=== PATIENT | male | born 1950 | race Caucasian/White ===

== ENCOUNTER → 2019-09-29 12:32 | Outpatient (BNVA) | payer MEDICAID, SELFPAY | PROVIDERS: Family Provider Nurse Practitioner Family; PCP Nurse Practitioner Family; Visit Provider Anesthesiology | DX: M51.36 Other intervertebral disc degeneration, lumbar region (principal); M47.816 Spondylosis without myelopathy or radiculopathy, lumbar region; M54.16 Radiculopathy, lumbar region; M51.06 Intervertebral disc disorders with myelopathy, lumbar region; M99.83 Other biomechanical lesions of lumbar region; Z79.891 Long term (current) use of opiate analgesic | CPT/HCPCS: 99213; 99214 ==

== ENCOUNTER → 2019-11-18 13:09 | Outpatient (BNVA) | payer MEDICAID, SELFPAY | PROVIDERS: Family Provider Nurse Practitioner Family; PCP Family Medicine; Visit Provider Anesthesiology | DX: M51.06 Intervertebral disc disorders with myelopathy, lumbar region (principal); M99.83 Other biomechanical lesions of lumbar region; M47.816 Spondylosis without myelopathy or radiculopathy, lumbar region; M51.36 Other intervertebral disc degeneration, lumbar region; M54.16 Radiculopathy, lumbar region; S83.289A Other tear of lateral meniscus, current injury, unspecified knee, initial encounter; X58.XXXA Exposure to other specified factors, initial encounter; Z79.891 Long term (current) use of opiate analgesic | CPT/HCPCS: 99214 ==

== ENCOUNTER 2019-12-09 09:53 | Outpatient (CLI) | payer MEDICAID, SELFPAY ==
--- NOTE | 2019-12-09 10:03 | XR_ITS ---
WS: [id number] ABDOMEN 1 VIEW(S) HISTORY: ABDOMINAL PAIN COMPARISON: 09/26/2017 Mild diffuse constipation. There is increased air also throughout the small bowel which may be due to constipation. No wall thickening identified. No suspicious calcifications or masses. No bone abnormality. XR/XR KUB [id number] IMPRESSION: Diffuse constipation.
== END 2019-12-09 09:54 | disposition home or self-care (01) ==
PROVIDERS: Family Provider Nurse Practitioner Family; PCP Family Medicine; Visit Provider Internal Medicine
DX: K59.03 Drug induced constipation (principal); T40.2X5A Adverse effect of other opioids, initial encounter; X58.XXXA Exposure to other specified factors, initial encounter
CPT/HCPCS: 74018

== ENCOUNTER 2020-01-03 07:28 | Day surgery (SDC) | payer MEDICAID, SELFPAY ==
[2019-12-31 13:59] VITALS: BMI 25.0
[2020-01-03 07:41] VITALS: BP 169/91; PULSE 69; RESP 18; TEMP 36.7; O2SAT 95
[2020-01-03] MEDS: sodium chloride 0.9% 1,000 ML 30 ML IV (07:55)
--- NOTE | 2020-01-03 08:01 | ANES.PREANE2 ---
Pre-Anesthetic Assessment Pre-Anesthetic Assessment: Height/Weight: Height 1.78 m Weight 78.925 kg Temp Pulse Resp BP Pulse Ox 98.0 F 69 18 169/91 95 01/03/20 07:41 01/03/20 07:41 01/03/20 07:41 01/03/20 07:41 01/03/20 07:41 Preop Diagnosis: constipation Proposed Procedure: Operation Date: 01/03/20 09:05 Proposed Procedures p Colonoscopy 07025 K59.00(Not Applicable) - Bry Funes MD Familial anesthetic complications: None Was Beta Nathan taken within 24 hours: N/A Last intake: Intake Last Liquid Date 01/02/20 Last Liquid Time 21:00 Last Solid Date 01/01/20 Last Solid Time 09:00 Social: Social History: No alcohol and No tobacco Exam: Pre-Anes Outpt Exam: alert, oriented x 3, clear to auscultation bilaterally and regular rate & rhythm Airway: Cervical ROM: WNL MP: 2 Additional comments: top plate Pulmonary: Pulmonary: COPD Comments: soemtimes wears oxygen during the CV/HEM: CV/HEM: [place] Comments: 12 years ago - [place] : : None reported Hepatic: Hepatic: None reported GI: GI: GERD Metabolic: Metabolic: None reported Musc/skel: Musc/skel: Lower Back Pain Neuropsych: Neuropsych: Neuropathy and TIA Comments: L leg neuropathy Anesthetic Plan: ASA status: 3 Anesthesia: MAC Risk of > 500 ml blood loss (7ml/kg in children): No Meds/Allergies Current Medications: Current Medications Generic Name Dose Route Start Last Admin Trade Name Freq PRN Reason Stop Dose Admin Sodium Chloride 1,000 mls @ 30 ml s/hr 01/03/20 07:45 01/03/20 07:55 Sodium Chloride 0.9% IV 30 mls/hr .Q24H KRYSTEN Administration PFSH Anesthesia PFSH: Medical History (Updated 12/31/19 @ 13:57 by Sylwia Car) Acute bilateral low back pain Acute meniscal tear, lateral Bladder cancer Bladder trabeculation Chronic lumbar radiculopathy DDD (degenerative disc disease), lumbar Degenerative arthritis of lumbar spine Encounter for long-term opiate analgesic use Intervertebral disc disorders with myelopathy, 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
--- NOTE | 2020-01-03 08:46 | FL_ITS ---
WS: [id number] INDICATION: Evaluate for obstruction. Precolonoscopy. Fluoroscopy time 3.6 minutes TECHNIQUE: Gastrografin enema FINDINGS: Gastrografin enema. Normal filling of the sigmoid colon. Sigmoid diverticulosis. Somewhat t ortuous sigmoid colon without focal narrowing. Hepatic and splenic flexure normal in appearance. Norm al transit time to the cecum and ileocecal valve. Normal filling of the appendix. No evidence of high-grade stricture or mass. Additional colonic diver ticulosis more prominent involving the hepatic flexure and ascending colon. Normal postevacuation wes ges. FL/FL enema w gastrografin [id number] IMPRESSION: 1. Unremarkable Gastrografin enema. No evidence of high-grade obstruction or m ass. 2. Diverticulosis more prominent in the sigmoid colon and hepatic flexure. 3. Normal transit time with filling of the cecum. Normal ileocecal valve. 4. Normal appendix filling visualized.
--- NOTE | 2020-01-03 09:02 | SUR.PREOP ---
900ML SOAP SUDS ENEMA GIVEN. PT RETAINED FLUID FOR 5 MINUTES THEN VOIDED SANTOS COLORED FLUID WITH NO STOOL PARTICLES. PT TOLERATED PROCEDURE WELL. DOCTOR GREGG MADE AWARE OF RESULTS.
--- NOTE | 2020-01-03 10:25 | SUR.PREOP ---
PT RETURNED FROM PROCEDURE IN RADIOLOGY. RE-EVALUATED BY DOCTOR ESCOBEDO.
[2020-01-03] MEDS: diatrizoate meglumine 120 mL Sol PR (11:10)
--- NOTE | 2020-01-03 11:53 | W.PM.OPSUD ---
Surgery/Procedure H&P Update DATE OF PROCEDURE: January 03, 2020 DATE H&P PERFORMED: 12/30/19 PREOP DIAGNOSIS: constipation PLANNED PROCEDURE: Operation Date: 01/03/20 09:05 Proposed Procedures p Colonoscopy 32368 K59.00(Not Applicable) - Bry Funes MD
[2020-01-03 12:06] VITALS: BP 94/57; PULSE 64; RESP 18; TEMP 36.4; O2SAT 94
[2020-01-03 12:27] VITALS: BP 125/73; PULSE 71; RESP 18; O2SAT 98
== END 2020-01-03 13:01 | disposition home or self-care (01) ==
PROVIDERS: Family Provider Nurse Practitioner Family; Visit Provider Internal Medicine
PROC: 0DJD8ZZ Inspection of Lower Intestinal Tract, Via Natural or Artificial Opening Endoscopic (ICD-10-PCS; CPT 45378; principal; 2020-01-03 09:00)
DX: K59.00 Constipation, unspecified (principal); K57.30 Diverticulosis of large intestine without perforation or abscess without bleeding; Z82.49 Family history of ischemic heart disease and other diseases of the circulatory system; Z83.3 Family history of diabetes mellitus; Z87.891 Personal history of nicotine dependence; J44.9 Chronic obstructive pulmonary disease, unspecified; I25.2 Old myocardial infarction; K21.9 Gastro-esophageal reflux disease without esophagitis
CPT/HCPCS: 45378; 12345; 74270; J2001; J2704; J7030; Q9963

== ENCOUNTER → 2020-03-22 12:52 | Outpatient (BNVA) | payer MEDICAID, SELFPAY | PROVIDERS: Family Provider Nurse Practitioner Family; PCP Nurse Practitioner Family; Visit Provider Anesthesiology | DX: M54.42 Lumbago with sciatica, left side (principal); M51.06 Intervertebral disc disorders with myelopathy, lumbar region; M47.816 Spondylosis without myelopathy or radiculopathy, lumbar region; M51.36 Other intervertebral disc degeneration, lumbar region; M54.16 Radiculopathy, lumbar region; M99.83 Other biomechanical lesions of lumbar region; Z79.891 Long term (current) use of opiate analgesic | CPT/HCPCS: 99213; 99214 ==

== ENCOUNTER → 2020-05-24 12:51 | Outpatient (BNVA) | payer MEDICAID, SELFPAY | PROVIDERS: Family Provider Nurse Practitioner Family; PCP Nurse Practitioner Family; Visit Provider Anesthesiology | DX: M54.41 Lumbago with sciatica, right side (principal); M54.42 Lumbago with sciatica, left side; M47.816 Spondylosis without myelopathy or radiculopathy, lumbar region; M51.06 Intervertebral disc disorders with myelopathy, lumbar region; M51.36 Other intervertebral disc degeneration, lumbar region; M54.16 Radiculopathy, lumbar region; M99.83 Other biomechanical lesions of lumbar region; Z79.891 Long term (current) use of opiate analgesic | CPT/HCPCS: 99213; 99214 ==

== ENCOUNTER → 2020-07-26 12:31 | Outpatient (BNVA) | payer MEDICAID, SELFPAY | PROVIDERS: Family Provider Nurse Practitioner Family; PCP Nurse Practitioner Family; Visit Provider Anesthesiology | DX: M54.42 Lumbago with sciatica, left side (principal); M51.06 Intervertebral disc disorders with myelopathy, lumbar region; M51.36 Other intervertebral disc degeneration, lumbar region; M47.816 Spondylosis without myelopathy or radiculopathy, lumbar region; M54.16 Radiculopathy, lumbar region; M99.83 Other biomechanical lesions of lumbar region; Z79.891 Long term (current) use of opiate analgesic | CPT/HCPCS: 99212; 99214 ==

== ENCOUNTER → 2020-09-22 12:56 | Outpatient (BNVA) | payer MEDICAID, SELFPAY | PROVIDERS: Family Provider Nurse Practitioner Family; PCP Nurse Practitioner Family; Visit Provider Nurse Practitioner | DX: M51.06 Intervertebral disc disorders with myelopathy, lumbar region (principal); M54.16 Radiculopathy, lumbar region; K59.03 Drug induced constipation; T40.2X5A Adverse effect of other opioids, initial encounter; X58.XXXA Exposure to other specified factors, initial encounter; Z79.891 Long term (current) use of opiate analgesic | CPT/HCPCS: 99213 ==

== ENCOUNTER → 2020-11-22 12:23 | Outpatient (BNVA) | payer MEDICAID, SELFPAY | PROVIDERS: Family Provider Nurse Practitioner Family; PCP Nurse Practitioner Family; Visit Provider Nurse Practitioner | DX: M54.16 Radiculopathy, lumbar region (principal); M51.36 Other intervertebral disc degeneration, lumbar region; M47.816 Spondylosis without myelopathy or radiculopathy, lumbar region; M51.06 Intervertebral disc disorders with myelopathy, lumbar region; M99.83 Other biomechanical lesions of lumbar region; T40.2X5A Adverse effect of other opioids, initial encounter; X58.XXXA Exposure to other specified factors, initial encounter; Z79.891 Long term (current) use of opiate analgesic | CPT/HCPCS: 99212 ==

== ENCOUNTER 2021-01-01 10:19 | Emergency (ER) | payer MEDICAID, SELFPAY ==
[2021-01-01 10:42] VITALS: BP 144/80; PULSE 67; RESP 16; TEMP 36.6; O2SAT 96; BMI 25.0
--- NOTE | 2021-01-01 10:51 | XRR_ITS ---
PROCEDURE INFORMATION: Exam: XR Abdomen Exam date and time: 01/01/2021 10:52 AM Age: 70 years old Clinical indication: Constipation; Abdominal pain; Generalized; Additional info: Abd pain and constipation for 1 year, increasing over time TECHNIQUE: Imaging protocol: XR of the abdomen. Views: Frontal supine view of the abdomen. 1 View. COMPARISON: CR XR KUB [id number] 12/09/2019 10:09 AM FINDINGS: Gastrointestinal tract: There is prominence of the amount of stool in the colon consistent with history of constipation. There is gaseous distention of multiple small bowel loops which is similar to previous examinations. Bones/joints: Unremarkable. XR/XR KUB portable [id number] IMPRESSION: 1. Prominence of the amount of stool in the colon consistent with constipation. 2. Stable gaseous distention of multiple bowel loops unchanged from multiple old examinations.
--- NOTE | 2021-01-01 11:28 | W.ED.ABDPA2 ---
HPI - Abdominal Pain General: Chief Complaint: Abdominal Pain Stated Complaint: NO BOWEL MOVEMENTS Time Seen by Provider: 01/01/21 10:48 History of Present Illness: HPI narrative: 70-year-old male presents emergency room with complaint of chronic constipation has not had a bowel movement last 3 to 4 days. He states he was seen at [place] evidently had a colonoscopy little over a year ago. He denies any hematochezia melena hematemesis coffee-ground emesis no dysuria urgency or frequency no vomiting. MD elicited complaint: abdominal pain Pertinent past history: constipation Onset (ago): year(s) Pain Consistency: intermittent Location: Diffuse Severity: mild Quality: cramping Radiation: none Migration to: no migration Relieving factors: bowel movement Associated Symptoms: Reports bloating, GI cramping and poor appetite; Denies belching, change in bowel habits, change in stool character, chills, coffee ground emesis, constipation, diarrhea, dyspepsia, dysuria, excessive flatus, fever(s), heartburn, hematochezia, hematuria, hematemesis, fecal incontinence, loose stools, melena, nausea, syncope and vomiting Review of Systems Const: Denies: fever(s) or chills ENMT: Denies: throat pain, ear or mastoid pain, nasal discharge or nasal congestion Card: Denies: syncope Resp: Denies: dyspnea, productive cough or non-productive cough GI: Reports: bloating and GI cramping; Denies: nausea, vomiting, hematemesis, coffee ground emesis, heartburn, diarrhea, constipation, belching, excessive flatus, fecal incontinence, change in bowel habits, hematochezia or melena : Denies: dysuria or hematuria Skin/Breast: Denies: rash or pruritus PFSH ED PFSH: Medical History Acute bilateral low back pain Acute meniscal tear, lateral Bladder cancer Bladder trabeculation Chronic lumbar radiculopathy DDD (degenerative disc disease), lumbar Degenerative arthritis of lumbar spine Encounter for long-term opiate analgesic use Intervertebral disc disorders with myelopathy, lumbar region Neural foraminal stenosis of lumbar spine Surgical History History of neoplasm of bladder Family History Mother Diabetes Father CAD (coronary artery disease) COPD (chronic obstructive pulmonary disease) Social History Smoking and tobacco status: former smoker Second hand smoke exposure: No Alcohol intake: never History of recent travel: No Current gender identity: Male Physical Exam Const: COMMON NORMALS: no acute distress GENERAL APPEARANCE: cooperative and comfortable ORIENTATION/CONSCIOUSNESS: Yes awake, Yes oriented to person, Yes oriented to place and Yes oriented to time HENMT: COMMON NORMALS: normocephalic, atraumatic and hearing grossly normal bilaterally HEAD & SCALP: normocephalic and atraumatic Neck/C-Spine: COMMON NORMALS: full ROM, no lymphadenopathy, supple and no JVD Resp: COMMON NORMALS: normal respiratory effort, No retractions, No use of accessory muscles and clear to auscultation bilaterally AUSCULTATION: clear to auscultation bilaterally Cardio: COMMON NORMALS: no JVD, regular rate, regular rhythm and No murmurs present (Cardio) RATE: regular rate RHYTHM: regular rhythm GI: COMMON NORMALS: Soft to palpation and No hepatosplenomegaly present AUSCULTATION: Yes normoactive bowel sounds PALPATION: Yes Soft to palpation, No Tenderness to palpation present (GI), No Guarding due to palpation present (GI) and Yes No hepatosplenomegaly present Extremity: COMMON NORMALS: normal to inspection, capillary refill normal, no clubbing, cyanosis or edema, no calf tenderness and no pedal edema Neuro: SENSORIUM/ORIENTATION: Yes oriented to person, Yes oriented to place and Yes oriented to time Skin: COMMON NORMALS: no rashes or lesions noted GENERAL SKIN EXAM: no rashes or lesions noted Course Vital Signs: Vital signs: Vital Signs Temperature 97.8 F 01/01/21 10:42 Pulse Rate 67 01/01/21 14:09 Respiratory Rate 18 01/01/21 14:09 Blood Pressure 146/77 01/01/21 14:09 Pulse Oximetry 95 01/01/21 14:09 MDM - Abdominal Pain MDM Narrative: Medical decision making narrative: Reviewed findings with the patient recommend that he follow-up with Dr. Funes or one of the surgeons for further evaluation recommend mag citrate for relief immediate constipation and Krupa-Colace for ongoing can use MiraLAX as well. Return if has problems Lab Data: Labs: Lab Results 01/01/21 01/01/21 01/01/21 Range/Units 11:00 12:40 12:40 WBC 6.0 (4.0-10.0) 10^3/ uL RBC 5.06 (4.1-5.3) 10^6/u L Hgb 16.7 H (11.7-16.6) g/dL Hct 54.0 H (42.0-52.0) % MCV 106.7 H (80-94) fL MCH 33.0 (28.0-34.0) pg MCHC 30.9 (30.0-36.0) g/dL RDW 13.1 (12.1-15.1) % Plt Count 131 (130-400) 10^3/c mm MPV 10.8 H (7.4-10.4) fL Neut % (Auto) 64.5 % Lymph % (Auto) 24.8 % Churchill % (Auto) 7.5 % Eos % (Auto) 2.2 % Baso % (Auto) 0.8 % Neut # (Auto) 3.88 (1.8-7.7) 10^3/u L Lymph # (Auto) 1.5 (0.8-4.8) 10^3/u L Churchill # (Auto) 0.5 (0.2-0.9) 10^3/u L Eos # (Auto) 0.1 (0.0-0.8) 10^3/u L Baso # (Auto) 0.1 (0.0-0.1) 10^3/u L Nucleated RBC % (a uto) 0 % Nucleated RBCs # 0.0 /100WBC Sodium 139 (136-145) mmol/L Potassium 3.9 (3.5-5.1) mmol/L Chloride 107 (98-107) mmol/L Carbon Dioxide 21 L (22-29) mmol/L Anion Gap 14.9 (5-19) BUN 9 (8-23) mg/dL Creatinine 0.7 (0.7-1.2) mg/dL GFR Calculation 111.5 (90-130) mL/min Glucose 78 (65-115) mg/dL Calculated Osmolal ity 286 (285-295) mOsm/k g Calcium 8.9 (8.5-10.5) mg/dL Total Bilirubin 0.5 (0.15-1.2) mg/dL AST 15 (0-40) U/L ALT 8 (0-41) U/L Alkaline Phosphata se 58 (40-130) IU/L Total Protein 6.8 (6.6-8.7) g/dL Albumin 4.0 (3.5-5.2) g/dL Globulin 2.8 (1.3-4.6) g/dL Urine Color Yellow (Yellow) Urine Appearance Clear (CLEAR) Urine pH 7 (5-7) Ur Specific Gravit y 1.010 (1.005-1.030) Urine Protein Neg (Negative) Urine Glucose (UA) Norm (Normal) Urine Ketones Negative (Negative) Urine Blood Neg (Negative) Urine Nitrate Negative (Negative) Urine Bilirubin Neg (Negative) Urine Urobilinogen Norm (Negative) mg/dL Ur Leukocyte Melida ase Negative (Negative) Discharge Plan Discharge Patient Disposition: Home Clinical Impression: Constipation Condition: Stable Prescriptions: New Citrate of Magnesia Solution 150 ml PO BID PRN (Reason: constipation) Qty: 296 RF: 0 No Action albuterol sulfate 2.5 mg /3 mL (0.083 %) solution for nebulization 2.5 mg INHALATION Q6H PRN (Reason: Shortness Of Breath) RF: 0 amlodipine 10 mg tablet 10 mg PO DAILY@0800 RF: 0 Benefiber Sugar Free (dextrin) 3 gram/3.8 gram powder 0.5 packet PO DAILY@0800 RF: 0 garlic 1,000 mg capsule 1,000 mg PO DAILY@0800 RF: 0 Discharge Orders: Discharge ED (Routine); Ordered 01/01/21 Ordered By: Alejandro Pruitt Referrals: Ridge Klein [Primary Care Provider] - Discharge Diet: Clear Liquid Discharge Activity: Increase activity as tolerated Patient Instructions: Opioid Safety Activity Restrictions/Additional Instructions: Case management will call to make arrangements for referral for colonoscopy. Coding Level of Care Code ED Car Clerk Pullman for Lee Ann Khan
[2021-01-01 11:43] LABS: Add Urine Microscopic? NO; Charge for UA Resulting for Rev
[2021-01-01 12:02] LABS: Bilirubin Urine Neg (Negative); Blood Urine Neg (Negative); Glucose Urine UA Norm (Normal); Ketones Urine Negative (Negative); Leukocyte Esterase Urine Negative (Negative); Nitrate Urine Negative (Negative); Protein Urine Neg (Negative); Urine Appearance Clear (CLEAR); Urine Color Yellow (Yellow); Urobilinogen Urine Norm (Negative); pH Urine 7 (5-7)
[2021-01-01 12:55] LABS: Basophils # 0.1 10^3/uL (0.0-0.1); Basophils % 0.8 %; Eosinophils # 0.1 10^3/uL (0.0-0.8); Eosinophils % 2.2 %; Hemoglobin 16.7 g/dL (11.7-16.6); Lymphocytes # 1.5 10^3/uL (0.8-4.8); Lymphocytes % 24.8 %; Mean Corpuscular HGB Conc 30.9 g/dL (30.0-36.0); Mean Corpuscular Volume 106.7 fL (80-94); Mean Platelet Volume 10.8 fL (7.4-10.4); Monocytes # 0.5 10^3/uL (0.2-0.9); Monocytes % 7.5 %; Neutrophils # 3.88 10^3/uL (1.8-7.7); Neutrophils % 64.5 %; Nucleated Red Blood Cells % 0 %; Platelet Count 131 10^3/cmm (130-400); Red Blood Count 5.06 10^6/uL (4.1-5.3); Red Cell Distribution Width 13.1 % (12.1-15.1)
[2021-01-01 13:26] LABS: Alanine Aminotransferase 8 U/L (0-41); Alkaline Phosphatase 58 IU/L (40-130); Aspartate Amino Transferase 15 U/L (0-40); Blood Urea Nitrogen 9 mg/dL (8-23); Calcium 8.9 mg/dL (8.5-10.5); Carbon Dioxide 21 mmol/L (22-29); Chloride 107 mmol/L (98-107); Globulin 2.8 g/dL (1.3-4.6); Glomerular Filtration Rate 111.5 mL/min (90-130); Glucose 78 mg/dL (65-115); Osmolality Calculated 286 mOsm/kg (285-295); Sodium 139 mmol/L (136-145); Total Bilirubin 0.5 mg/dL (0.15-1.2); Total Protein 6.8 g/dL (6.6-8.7)
[2021-01-01 13:33] LABS: Anion Gap 14.9 (5-19); Potassium 3.9 mmol/L (3.5-5.1)
[2021-01-01 14:08] VITALS: BP 141/76; PULSE 66; RESP 18; O2SAT 95
[2021-01-01 14:09] VITALS: BP 146/77; PULSE 67; RESP 18; O2SAT 95
--- NOTE | 2021-01-04 14:09 | DCPLANNER ---
manager maritime had message to schedule a follow up appointment for patient with Dr. Funes. manager maritime called the office of Dr. Funes, spoke with Beverley, gave clinic patients information. A follow up appointment was scheduled for Sunday, January 10, 2021 at 2:[address] Funes. manager maritime called patient with appointment information.
--- NOTE | 2021-04-04 07:14 | DCPLANNER ---
Patient had a follow up appointment scheduled for 01.10.[address] Funes - patient did attend appointment.
== END 2021-01-01 14:11 | disposition home or self-care (01) ==
PROVIDERS: Emergency Provider Family Medicine; PCP Nurse Practitioner Family
DX: K59.00 Constipation, unspecified (principal); Z85.51 Personal history of malignant neoplasm of bladder; Z87.891 Personal history of nicotine dependence
CPT/HCPCS: 36415; 74018; 80053; 81003; 85025; 99282

== ENCOUNTER 2021-09-09 11:03 | Observation (INO) | payer MEDICAID, SELFPAY ==
[2021-09-09] VITALS (11 sets, daily range): BP systolic 129–158; BP diastolic 68–94; PULSE 54–68; RESP 14–22; TEMP 36.6–36.7; O2SAT 92–97; BMI 22.6
--- NOTE | 2021-09-09 11:21 | ECG_ITS ---
[facility] Test Date: 2021-09-09 Pat Name: Bo Paez Department: Room: Gender: Male Employee Health Nurse: : 1950 Requested By: Kriss Gallagher Order Number: [id number] Chang MD: Teresa Galeas M.D. Measurements Intervals [place] Rate: 55 P: 46 AL: 225 QRS: 3 QRSD: 98 T: 32 QT: 433 QTc: 415 Interpretive Statements SINUS BRADYCARDIA WITH FIRST DEGREE AV BLOCK LOW QRS VOLTAGE IN EXTREMITY LEADS [QRS DEFLECTION < 0.5 mV IN LIMB LEADS] Compared to ECG 09/21/2015 10:25:12 First degree AV block now present Low QRS voltage now present Sinus rhythm no longer present T-wave abnormality no longer present Electronically Signed On 09-10-2021 15:34:21 FOREST EXAMINER by Teresa Galeas M.D. [id number]
--- NOTE | 2021-09-09 12:15 | W.ED.GENADLT ---
HPI - General Adult General: Chief complaint: Arrhythmia/Palpitations Stated complaint: irregular heartbeat Time Seen by Provider: 09/09/21 11:28 History of Present Illness: HPI narrative: HPI: [70]yo patient w/ hx of HTN prior hx of CAD, COPD presenting to the ED for concern for s/p acute episode of light-headedness lasting for 3 hrs this morning while at home. Patient reports diaphoresis and dyspnea with the episode. On arrival, the patient denies any trauma/fall, chest pain, SOB, palpitations, focal neurological weakness in the arms or legs. Patient could not recall exactly what happened, but denied any post-ictal confusion, bowel or bladder incontinence after the incident. Denies any chest pain, shortness, palpitation, abdominal pain or back pain prior to the episode of syncope. No recent exertional chest pain or shortness of breath. Denies vertigo or disequilibrium. The episode of syncope was not preceded by any prodromes including nausea, pallor, or diaphoresis. No symptoms of diarrhea, hematuria, dysuria, melena or hematochezia. No prior documented hx of anemia requiring blood transfusions, VTE, or aortic aneurysm. Onset: 1 day ago Duration: x 1 episode Location: home Severity: moderate Review of Systems Narrative: Constitutional: No fever, no chills. HEENT: No vision changes CV: No chest pain, +palpitations PULM: No productive cough, dyspnea, +diaphoresis GI: No abdominal pain, no N/V/D. : No Dysuria MSKEL: No muscle pain SKIN: No new rashes, no lesions. NEURO: No headache, no focal weakness. +light-headedness HEME: No visible bruises PSYCH: Normal mood PFSH ED PFSH: Medical History Acute bilateral low back pain Acute meniscal tear, lateral Bladder cancer Bladder trabeculation Chronic lumbar radiculopathy COPD (chronic obstructive pulmonary disease) DDD (degenerative disc disease), lumbar Degenerative arthritis of lumbar spine Encounter for long-term opiate analgesic use Hypertension Intervertebral disc disorders with myelopathy, lumbar region Neural foraminal stenosis of lumbar spine Surgical History History of neoplasm of bladder Family History Mother Diabetes Father CAD (coronary artery disease) COPD (chronic obstructive pulmonary disease) Social History Smoking and tobacco status: current every day smoker cigarettes Second hand smoke exposure: No Alcohol intake: never Lives independently: Yes Household members: none Marital status: Single Marital status details: Has a significant other History of recent travel: No Current gender identity: Male Physical Exam Narrative: EXAM NARRATIVE: Head: Atraumatic Eyes: PERRL, conjunctiva without injection, eyes tracking ENT: Mucous membrane moist NECK: Supple without lymphadenopathy, no nuchal rigidity LUNGS: LCTAB CV: RRR ABDOMEN: Soft, nontender in all quadrants, no guarding or rebound tenderness, no CVA or flank tenderness bilaterally EXTREMITY: Normal ROM SKIN: No rash or erythema NEURO: Mental status: A/Ox3 CN II-XII tested and intact. Sensation intact to sharp/dull differentiation in all extremities. Motor: Normal tone and bulk. No abnormal movements appreciated. No pronator drift. Strength tested and 5/5 in bilateral wrist flexion/extension, elbow flexion/extension, shoulder abduction, straight leg raise, knee flexion/extension, ankle dorsiflexion/plantarflexion. Patient ambulates with a steady gait. Coordination: Finger to nose and heel to alfonso testing intact bilaterally. PSYCH: Cooperative mood and affect Course Vital Signs: Vital signs: Vital Signs Temperature 97.4 F L 09/10/21 07:18 Pulse Rate 52 L 09/10/21 07:18 Respiratory Rate 19 H 09/10/21 07:18 Blood Pressure 162/99 09/10/21 12:39 Pulse Oximetry 95 09/10/21 07:18 MDM - General Adult MDM Narrative: Medical decision making narrative: [70]yo patient w/ hx of CAD, HTN presenting to the ED with []near syncope. -chest pain, +SOB, +palpitations /+diaphoresis. Currently symptom free. HDS. Neurologically intact. Given history, exam and workup, presentation not consistent with seizures given short time course, no postictal state, no seizure activity. Low suspicion for acute neurologic catastrophes to include ICH given lack of trauma, risk factors for bleeding diathesis. Low suspicion for vascular catastrophes to include PE, thoracic aortic dissection, AAA rupture. Presentation not consistent with acute life threatening arrhythmia, structural heart disease, electrical conduction abnormalities, or ACS. Workup: CBC, BMP, Troponin, BNP, ECG, CXR for aspiration, orthostatic vitals Intervention: IVF, PO challenge, and serial reassessment EKG: No e/o STEMI. No evidence of Brugada?s sign, delta wave, epsilon wave, significantly prolonged QTc, or malignant arrhythmia. [1:12pm] On reassessment, patient continues to HDS. No acute complaints currently. No syncopal episode in the ER. No arrhythmia noted on the cardiac cath lab technologist. []Patient has been able to ambulate in the ED without issues. No suspicion of neurogenic syncope at this time. However, given age, cardiovascular risk factors and multiple co-rmbities, the patient will need inpatient workup for cardiac syncope. Patient agrees with the plan for inpatient admission at this time. Disposition: Admit to medicine, telemetry bed for cardiac monitoring and cardiology review. Lab Data: Labs: Lab Results 09/09/21 09/09/21 09/09/21 12:06 12:06 12:06 WBC 7.1 10^3/uL 10^3/ uL (4.0-10.0) RBC 4.80 10^6/uL 10^6 /uL (4.1-5.3) Hgb 15.8 g/dL g/dL (11.7-16.6) Hct 46.5 % % (42.0-52.0) MCV 96.9 fl H fl (80-94) MCH 32.9 pg pg (28.0-34.0) MCHC 34.0 g/dL g/dL (30.0-36.0) RDW 12.9 % % (12.1-15.1) Plt Count 122 10^3/cmm L 10 ^3/cmm (130-400) MPV 11.1 fL H fL (7.4-10.4) Neut % (Auto) 58.1 % % Lymph % (Auto) 26.7 % % Hale % (Auto) 9.6 % % Eos % (Auto) 4.5 % % Baso % (Auto) 1.0 % % Neut # (Auto) 4.12 10^3/uL 10^3 /uL (1.8-7.7) Lymph # (Auto) 1.9 10^3/uL 10^3/ uL (0.8-4.8) Hale # (Auto) 0.7 10^3/uL 10^3/ uL (0.2-0.9) Eos # (Auto) 0.3 10^3/uL 10^3/ uL (0.0-0.8) Baso # (Auto) 0.1 10^3/uL 10^3/ uL (0.0-0.1) Nucleated RBC % (a uto) 0 % % Nucleated RBCs # 0.0 /100WBC /100W BC Sodium 138 mmol/L mmol/L (136-145) Potassium 4.2 mmol/L mmol/L (3.5-5.1) Chloride 105 mmol/L mmol/L (98-107) Carbon Dioxide 22 mmol/L mmol/L (22-29) Anion Gap 15.2 (5-19) BUN 17 mg/dL mg/dL (8-23) Creatinine 1.0 mg/dL mg/dL (0.7-1.2) GFR Calculation 73.9 mL/min L mL/ min (90-130) Glucose 89 mg/dL mg/dL (65-115) Calculated Osmolal ity 287 mOsm/kg mOsm/ kg (285-295) Calcium 8.1 mg/dL L mg/dL (8.5-10.5) Magnesium 2.1 mg/dL mg/dL (1.7-2.3) Troponin T Baselin e 11 ng/L ng/L (0-15) Discharge Plan Discharge Patient Disposition: Admitted As Inpatient Admit Provider: Anshul Last Clinical Impression: Palpitations, Light headedness Condition: Stable Discharge Diet: Cardiac Discharge Activity: Resume usual activity Coding Level of Care Code ED Typo Machine Operator for Lee Ann Khan
[2021-09-09 12:17] LABS: Basophils # 0.1 10^3/uL (0.0-0.1); Eosinophils # 0.3 10^3/uL (0.0-0.8); Eosinophils % 4.5 %; Hematocrit 46.5 % (42.0-52.0); Hemoglobin 15.8 g/dL (11.7-16.6); Lymphocytes # 1.9 10^3/uL (0.8-4.8); Lymphocytes % 26.7 %; Mean Corpuscular Hemoglobin 32.9 pg (28.0-34.0); Mean Corpuscular Volume 96.9 fl (80-94); Mean Platelet Volume 11.1 fL (7.4-10.4); Monocytes # 0.7 10^3/uL (0.2-0.9); Monocytes % 9.6 %; Neutrophils # 4.12 10^3/uL (1.8-7.7); Neutrophils % 58.1 %; Nucleated Red Blood Cells % 0 %; Platelet Count 122 10^3/cmm (130-400); Red Cell Distribution Width 12.9 % (12.1-15.1); White Blood Count 7.1 10^3/uL (4.0-10.0)
[2021-09-09 12:34] LABS: Troponin(5th) Baseline 11 ng/L (0-15)
[2021-09-09 12:41] LABS: Anion Gap 15.2 (5-19); Blood Urea Nitrogen 17 mg/dL (8-23); Calcium 8.1 mg/dL (8.5-10.5); Carbon Dioxide 22 mmol/L (22-29); Chloride 105 mmol/L (98-107); Glomerular Filtration Rate 73.9 mL/min (90-130); Glucose 89 mg/dL (65-115); Magnesium 2.1 mg/dL (1.7-2.3); Osmolality Calculated 287 mOsm/kg (285-295); Potassium 4.2 mmol/L (3.5-5.1); Sodium 138 mmol/L (136-145)
--- NOTE | 2021-09-09 13:07 | XRR_ITS ---
PROCEDURE INFORMATION: Exam: XR Chest Exam date and time: 09/09/2021 1:07 PM Age: 70 years old Clinical indication: Dyspnea TECHNIQUE: Imaging protocol: XR of the chest. Views: 1 view. COMPARISON: CR XR KUB portable [id number] 01/01/2021 11:14 AM FINDINGS: Lungs: Unremarkable. No consolidation. Lungs are hyperexpanded. Pleural spaces: Unremarkable. No pleural effusion. No pneumothorax. Heart/Mediastinum: Unremarkable. No cardiomegaly. Bones/joints: ORIF partially visualized left humerus. XR/XR chest 1V portable [id number] IMPRESSION: Lungs are hyperexpanded. This can be seen with COPD. Please correlate clinically.
--- NOTE | 2021-09-09 13:21 | ECG_ITS ---
[facility] Test Date: 2021-09-09 Pat Name: Bo Paez Department: Room: Gender: Male Manager Asset: : 1950 Requested By: Kriss Gallagher Order Number: [id number] Chang MD: Teresa Galeas M.D. Measurements Intervals [place] Rate: 59 P: 83 CA: 216 QRS: -2 QRSD: 105 T: 42 QT: 413 QTc: 410 Interpretive Statements SINUS BRADYCARDIA WITH FIRST DEGREE AV BLOCK LOW QRS VOLTAGE IN EXTREMITY LEADS [QRS DEFLECTION < 0.5 mV IN LIMB LEADS] Compared to ECG 09/09/2021 12:27:02 No significant changes Electronically Signed On 09-10-2021 16:57:58 PARTY PLAN SALES DIRECTOR by Teresa Galeas M.D. [id number]
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
--- NOTE | 2021-09-09 16:45 | PC.NURSE ---
Shift Note Frequent safety and comfort rounds continue. Orders and/or nursing care completed as indicated. Patient monitored for response to intervention and treatment(s). Education provided includes orthostatic telemetry monitoring, aspirin and lovenox. Patient and/or indirect sales representative verbalizes understanding. Will continue to monitor. oriented pt to staff. call light provided.
--- NOTE | 2021-09-09 17:21 | ECG_ITS ---
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 Measurements Intervals [place] Rate: 64 P: 5 VT: 170 QRS: 16 QRSD: 102 T: 57 QT: 395 QTc: 408 Interpretive Statements SINUS RHYTHM LOW QRS VOLTAGE IN EXTREMITY LEADS [QRS DEFLECTION < 0.5 mV IN LIMB LEADS] Compared to ECG 09/09/2021 13:43:31 Sinus bradycardia no longer present First degree AV block no longer present Electronically Signed On 09-10-2021 16:57:19 SOLE LEVELING MACHINE OPERATOR by Teresa Galeas M.D. [email or web address]
[2021-09-09] MEDS: aspirin 81 mg EC Tablet PO (18:41)
[2021-09-09] MEDS: enoxaparin 40 mg/0.4 mL Syringe SUBCUT (18:42)
[2021-09-09 19:00] LABS: Troponin 5 6HR 12.21 ng/L (0-15); Troponin 5 6HR Delta 1.21 ng/L (0-12)
--- NOTE | 2021-09-09 23:52 | PC.NURSE ---
Patient request to take off jeans at beginning of shift. He does not want to do this at this time. Explained that it will be necessary for scheduled testing in the am. Will try once more to get patient to remove jeans at later vital signs.
[2021-09-10 03:37] VITALS: BP 140/97; PULSE 62; RESP 17; TEMP 36.8; O2SAT 94
[2021-09-10 04:11] VITALS: PULSE 50
[2021-09-10 04:52] LABS: Basophils # 0.1 10^3/uL (0.0-0.1); Eosinophils # 0.3 10^3/uL (0.0-0.8); Eosinophils % 3.8 %; Hematocrit 46.2 % (42.0-52.0); Hemoglobin 15.9 g/dL (11.7-16.6); Lymphocytes # 2.7 10^3/uL (0.8-4.8); Lymphocytes % 33.3 %; Mean Corpuscular HGB Conc 34.4 g/dL (30.0-36.0); Mean Corpuscular Hemoglobin 33.5 pg (28.0-34.0); Mean Corpuscular Volume 97.3 fl (80-94); Mean Platelet Volume 11.2 fL (7.4-10.4); Monocytes # 0.9 10^3/uL (0.2-0.9); Monocytes % 10.9 %; Neutrophils # 4.05 10^3/uL (1.8-7.7); Neutrophils % 50.9 %; Nucleated Red Blood Cells % 0 %; Platelet Count 130 10^3/cmm (130-400); Red Blood Count 4.75 10^6/uL (4.1-5.3)
[2021-09-10 05:23] LABS: Alanine Aminotransferase 6 U/L (0-41); Albumin Level 3.6 g/dL (3.5-5.2); Alkaline Phosphatase 53 IU/L (40-130); Aspartate Amino Transferase 12 U/L (0-40); Blood Urea Nitrogen 15 mg/dL (8-23); Calcium 8.3 mg/dL (8.5-10.5); Carbon Dioxide 29 mmol/L (22-29); Chloride 106 mmol/L (98-107); Globulin 2.4 g/dL (1.3-4.6); Glomerular Filtration Rate 83.4 mL/min (90-130); Glucose 83 mg/dL (65-115); Osmolality Calculated 296 mOsm/kg (285-295); Sodium 143 mmol/L (136-145); Thyroid Stimulating Hormone 2.62 uIU/mL (0.27-4.20); Total Bilirubin 0.4 mg/dL (0.15-1.2)
--- NOTE | 2021-09-10 06:00 | USCV_ITS ---
Bo Paez Age: 70 Gender: M : 1950 Exam Date: 09/10/2021 06:24 Ordering Phys: Anshul Last MD Technologist: Junie Ortega [place] [facility] [place]: LLE SWELLING HISTORY: Lower extremity swelling. PROCEDURES: Venous duplex imaging was performed in only the left lower extremity. The following venous structures were evaluated: common femoral vein, profunda vein, proximal portion of the greater saphenous vein, superficial femoral vein, and the popliteal vein. In addition, the posterior tibial and peroneal trunk were evaluated. Serial compression, augmentation maneuvers, and spectral Doppler flow evaluation were performed. FINDINGS: No evidence of DVT seen in any vessel visualized at this time. CONCLUSIONS No evidence of left lower extremity DVT. Mateus Pérez MD (Electronically Signed) Final Date: 10 September 2021 10:50 S
--- NOTE | 2021-09-10 06:00 | USCV_ITS ---
Bo Paez Age: 70 Gender: M : 1950 Exam Date: 09/10/2021 06:32 Ordering Phys: Anshul Last MD Technologist: Junie Ortega [place] [facility] [place]ication: BRADYCARDIA, CAD BP: 140 / 97 HR: 51 Rhythm: Other Technical Quality: Technically difficult study MEASUREMENTS (Male / Female) Normal Values 2D ECHO LV Diastolic Diameter PLAX 4.3 cm 4.2 - 5.9 / 3.9 - 5.3 cm LV Systolic Diameter PLAX 3.2 cm IVS Diastolic Thickness 1.4 cm 0.6 - 1.0 / 0.6 - 0.9 cm IVS Systolic Thickness 1.9 cm LVPW Diastolic Thickness 1.6 cm 0.6 - 1.0 / 0.6 - 0.9 cm LVPW Systolic Thickness 2.2 cm LVOT Diameter 2.0 cm LV Ejection Fraction 2D Teich 52.4 % LV Ejection Fraction MOD 2C 49.0 % LV Ejection Fraction 2C AL 47.9 % LA Diameter 3.4 cm LA Width 3.1 cm LA Height 4.0 cm RA Width 2.7 cm RA Height 3.6 cm Aorta at Sinotubular Diameter 2.8 cm M-MODE Aortic Annulus Diameter 2.7 cm LA Ao Ratio MM 1.2 MV E Point Septal Separation 0.7 cm DOPPLER AV Peak Velocity 89.0 cm/s LVOT Peak Velocity 66.0 cm/s AV Area Cont Eq vti 2.2 cm squared AV Area Cont Eq pk 2.4 cm squared MV Peak Velocity 69.0 cm/s MV Area PHT 2.7 cm squared Mitral E to A Ratio 1.0 MV E' Velocity 34.5 cm/s Mitral E to MV E' Ratio 6.3 Mitral E to LV E' Lateral Ratio 6.8 Mitral E to LV E' Septal Ratio 6.0 TV Peak E Velocity 54.0 cm/s PV Peak Velocity 71.0 cm/s RV Acceleration Time 0.1 s RV Ejection Time 0.3 s RV AcT/ET 0.3 FINDINGS Left Ventricle Normal left ventricular size and systolic function, EF 48 %. Mild left ventricular hypertrophy. Diffuse hypokinesia of the inferolateral wall segment Right Ventricle The right ventricle is normal in size and function. Right Atrium The right atrium is normal in size. Left Atrium The left atrium is normal in size. Mitral Valve Thickened mitral valve. Mild mitral annular calcification. Aortic Valve Thickened aortic valve. Tricuspid Valve No gross abnormalities noted Pulmonic Valve Pulmonic valve not well visualized. Pericardium Normal pericardium without effusion. Aorta Normal ascending aorta dimension. CONCLUSIONS Normal left ventricular size with diminished LVEF 48 %. Mild left ventricular hypertrophy. Diffuse hypokinesis of the inferolateral wall segment Thickened mitral valve. Mild mitral annular calcification. Thickened aortic valve. There is no pericardial effusion. There are no intracardiac masses. No previous study is available for comparison. Dr Douglas Junior MD FACC (Electronically Signed) Final Date: 11 September 2021 00:02 S
[2021-09-10 07:18] VITALS: BP 162/99; PULSE 52; RESP 19; TEMP 36.3; O2SAT 95
--- NOTE | 2021-09-10 07:22 | PC.NURSE ---
Patient refusing to take off his jeans thoughout previous shift and at beginning of my shift. ASPHALT SPREADER OPERATOR able to get patient to remove his jeans at end of shift as he had a venous doppler ordered for possible dvt as he has swelling to lag. Patient getting echo when I went into to do another assessment. Report given to Nikki on oncoming shift.
[2021-09-10 08:08] VITALS: BP 162/99
[2021-09-10] MEDS: losartan 50 mg Tablet 25 MG PO (08:08)
[2021-09-10] MEDS: aspirin 81 mg EC Tablet PO (08:08)
--- NOTE | 2021-09-10 11:13 | P.DS_ITS ---
Discharge Providers Date of Admission: 09/09/21 13:08 Date of Discharge: September 10, 2021 Attending Provider at Admission: Anshul Last Attending Provider at Discharge: Santino Spivey MD Primary Care Provider: Ridge Klein Diagnoses at Discharge Discharge Diagnosis (1) Palpitations: Status: Acute (2) Light headedness: Status: Acute (3) CAD (coronary artery disease): Status: Acute (4) Bradycardia: Status: Acute (5) Thrombocytopenia: Status: Acute (6) Hyperinflation of lungs: Status: Acute (7) Smoking addiction: Status: Acute Reason for Visit Reason for Visit: irregular heartbeat Hospital Course Hospital Course 71-year-old gentleman past medical history of CAD with possible angiogram around 20 years ago, not sure about PCI who follows up with a doctor at [place], chronic smoker, possible COPD, hypertension, long-term opiate use presented to the ER with having palpitations, possible shaking of the bed, dizziness and malaise and lightheadedness for 1 day. In hospital patient was found to be bradycardic with heart rate running in low 50s. On admission his orthostatics was positive. His home dose of amlodipine was withheld. Lower limb Dopplers were done which were negative. His antihypertensives were switched to losartan 50 mg. Patient needs to stay in the hospital for further investigation with echocardiogram and possible Lexiscan stress test to rule out obstructive CAD and further changes in medications accordingly. The possibility and etiology of his symptoms were discussed in detail with the patient and patient's family at bedside. Even after multiple counseling patient insisted on going home because he did not like the food at hospital. Patient left AGAINST MEDICAL ADVICE. He was counseled in detail to stop smoking, follow-up with his primary care provider within next 7 to 10 days for a possible echocardiogram and stress test as an outpatient. He is also advised to get a pulmonary function test as an outpatient to diagnose COPD. Physical Exam Narrative: EXAM NARRATIVE: Girlfriend at bedside Const: COMMON NORMALS: no acute distress and patient oriented x3 HENMT: COMMON NORMALS: oropharynx normal Neck/C-Spine: COMMON NORMALS: no JVD Resp: COMMON NORMALS: normal respiratory effort and clear to auscultation bilaterally AUSCULTATION: clear to auscultation bilaterally Cardio: COMMON NORMALS: no JVD, regular rhythm, S1 normal heart sound present, S2 normal heart sound present and No murmurs present (Cardio) RHYTHM: regular rhythm HEART SOUNDS: S1 normal heart sound present and S2 normal heart sound present GI: COMMON NORMALS: Normal to inspection, nondistended, normoactive bowel sounds present, Soft to palpation and non-tender PALPATION: Yes Soft to palpation Extremity: COMMON NORMALS: no joint enlargement GENERAL: Yes edema (2+ LLE) Neuro: COMMON NORMALS: patient oriented x3 and moves all extremities Skin: COMMON NORMALS: no rashes or lesions noted GENERAL SKIN EXAM: no rashes or lesions noted Discharge Data Data Completed and Pending: Completed Studies During Hospitalization Category Date Time Status XR chest 1V julianna ble [id number] Urgent Exams 09/09/21 13:07 [place] [id number] Routin e Ultrasound 09/10/21 06:00 Completed Pending at discharge Category Date Time Status Complete Blood Co unt w/Auto AM LABS Lab 09/11/21 04:00 Ordered Complete Blood Co unt w/Auto AM LABS Lab 09/12/21 04:00 Ordered Comprehensive Met abolic Panel AM LA BS Lab 09/11/21 04:00 Ordered Comprehensive Met abolic Panel AM LA BS Lab 09/12/21 04:00 Ordered Hemoglobin A1C Ro utine Lab 09/10/21 11:02 Ordered Lipid Profile w/V LDL Routine Lab 09/10/21 11:02 Ordered NT Pro B Type Opal riuretic Pept Rout ine Lab 09/10/21 11:02 Ordered TIBC [Total Iron Binding Capacity] Routine Lab 09/10/21 11:02 Ordered Thyroid Stimulati ng Hormone Stat Lab 09/10/21 11:02 Ordered CV. echo complete * [id number] Routine Ultrasound 09/10/21 06:00 Taken Labs from last 24 hours 09/10/21 09/10/21 09/09/21 04:00 04:00 18:31 WBC 8.0 RBC 4.75 Hgb 15.9 Hct 46.2 MCV 97.3 H MCH 33.5 MCHC 34.4 RDW 13.0 Plt Count 130 MPV 11.2 H Neut % (Auto) 50.9 Lymph % (Auto) 33.3 Otero % (Auto) 10.9 Eos % (Auto) 3.8 Baso % (Auto) 1.0 Neut # (Auto) 4.05 Lymph # (Auto) 2.7 Otero # (Auto) 0.9 Eos # (Auto) 0.3 Baso # (Auto) 0.1 Nucleated RBC % (a uto) 0 Nucleated RBCs # 0.0 Sodium 143 Potassium 4.0 Chloride 106 Carbon Dioxide 29 Anion Gap 12.0 BUN 15 Creatinine 0.9 GFR Calculation 83.4 L Glucose 83 Calculated Osmolal ity 296 H Calcium 8.3 L Magnesium Total Bilirubin 0.4 AST 12 ALT 6 Alkaline Phosphata se 53 Troponin T Baselin e Troponin T 120 Min [employer] Delta Troponin T Troponin T Hi Sens 6Hr 12.21 Troponin T Hi Sens 6Hr Delta 1.21 Total Protein 6.0 L Albumin 3.6 Globulin 2.4 TSH 2.62 09/09/21 09/09/21 09/09/21 14:21 12:06 12:06 WBC RBC Hgb Hct MCV MCH MCHC RDW Plt Count MPV Neut % (Auto) Lymph % (Auto) Otero % (Auto) Eos % (Auto) Baso % (Auto) Neut # (Auto) Lymph # (Auto) Otero # (Auto) Eos # (Auto) Baso # (Auto) Nucleated RBC % (a uto) Nucleated RBCs # Sodium 138 Potassium 4.2 Chloride 105 Carbon Dioxide 22 Anion Gap 15.2 BUN 17 Creatinine 1.0 GFR Calculation 73.9 L Glucose 89 Calculated Osmolal ity 287 Calcium 8.1 L Magnesium 2.1 Total Bilirubin AST ALT Alkaline Phosphata se Troponin T Baselin e 11 Troponin T 120 Min [employer] 11.40 Delta Troponin T 0.40 Troponin T Hi Sens 6Hr Troponin T Hi Sens 6Hr Delta Total Protein Albumin Globulin TSH 09/09/21 12:06 WBC 7.1 RBC 4.80 Hgb 15.8 Hct 46.5 MCV 96.9 H MCH 32.9 MCHC 34.0 RDW 12.9 Plt Count 122 L MPV 11.1 H Neut % (Auto) 58.1 Lymph % (Auto) 26.7 Otero % (Auto) 9.6 Eos % (Auto) 4.5 Baso % (Auto) 1.0 Neut # (Auto) 4.12 Lymph # (Auto) 1.9 Otero # (Auto) 0.7 Eos # (Auto) 0.3 Baso # (Auto) 0.1 Nucleated RBC % (a uto) 0 Nucleated RBCs # 0.0 Sodium Potassium Chloride Carbon Dioxide Anion Gap BUN Creatinine GFR Calculation Glucose Calculated Osmolal ity Calcium Magnesium Total Bilirubin AST ALT Alkaline Phosphata se Troponin T Baselin e Troponin T 120 Min [employer] Delta Troponin T Troponin T Hi Sens 6Hr Troponin T Hi Sens 6Hr Delta Total Protein Albumin Globulin TSH Vitals: Last Vital Signs Temp 97.4 F L 09/10/21 07:18 Pulse 52 L 09/10/21 07:18 Resp 19 H 09/10/21 07:18 BP 162/99 09/10/21 08:08 Pulse Ox 95 09/10/21 07:18 Discharge Plan Discharge Patient Disposition: Left Against Medical Advice Condition: Stable Prescriptions: New losartan 50 mg Tablet 50 mg PO DAILY Qty: 30 RF: 0 aspirin 81 mg Tablet,Delayed Release (Dr/Ec) 81 mg PO DAILY 30 Days Qty: 30 RF: 0 Continued albuterol sulfate 2.5 mg /3 mL (0.083 %) solution for nebulization 2.5 mg INHALATION Q6H PRN (Reason: Shortness Of Breath) RF: 0 docusate sodium 100 mg capsule 100 mg PO BEDTIME RF: 0 hydroxyzine HCl 25 mg tablet 25 mg PO TID PRN (Reason: Anxiety) RF: 0 magnesium citrate [Citrate of Magnesia] Solution 150 ml PO BID PRN (Reason: constipation) Qty: 296 RF: 0 Discontinued amlodipine 10 mg tablet 10 mg PO DAILY@0800 RF: 0 Referrals: Ridge Klein [Primary Care Provider] - 4-7 days Discharge Diet: Cardiac Discharge Activity: Resume usual activity Patient Instructions: Opioid Safety Activity Restrictions/Additional Instructions: Try to stop smoking as soon as possible. Please follow-up with your primary care provider within next 1 week. You should get an echocardiogram and a stress test as an outpatient to rule out CAD. Your blood pressure medicine has been changed from amlodipine to losartan 50 mg daily. You should have a pulmonary function test as an outpatient to diagnose COPD. Discharge Attestations Time Spent in Discharge Care*: greater than 30 min Specific Discharge Activities: educating patient, educating and/or supporting family/caregiver, discussing with machine adjuster leader case trim/social workers/dc planners, documenting/other paperwork and evaluating patient/reviewing data Time Spent in Smoking Cessation: more than 10 minutes Status at Discharge: Cognitive status at discharge: cognitively intact , Behavioral status at discharge: can be uncooperative , Functional status at discharge: independent ambulation Overall status at discharge: patient is not back to baseline Quality Metrics Clinical Quality Measures During this hospital stay, did patient experience: None Coding Level of Care Code Acute [facility] FW PA note Diagnoses Palpitations R00.2 Light headedness R42 CAD (coronary artery disease) I25.10 Bradycardia R00.1 Thrombocytopenia D69.6 Hyperinflation of lungs R09.89 Smoking addiction F17.200
--- NOTE | 2021-09-10 11:25 | PC.NURSE ---
patient left against medical advice. patient is friendly but states i haven't been fed any decent food sense i have been here and I'm not gonna just starve. Physician educated patient regarding risks of leaving, nurse educated patient and family regarding risks. Patient still chooses to leave AMA.IV was removed, and patient was taken out of the facility via wheelchair.
[2021-09-10 12:12] LABS: Estmated Average Glucose 120; Hemoglobin A1C 5.8 % (4.0-6.0)
[2021-09-10 12:29] LABS: Chol HDL Ratio 3.98 mg/dL (1.0-5.00); Cholesterol 215 mg/dL (0-200); HDL Cholesterol 54 mg/dL (60-100); Iron 87 ug/dL (59-158); LDL Cholesterol Calculated 136 mg/dL (50-129); NT Pro B Type Natriuretic Pept 152 pg/mL (0-125); Total Iron Binding Capacity 212 mcg/dl; Triglycerides 124 mg/dL (0-150); Unsaturated Iron Binding 125 ug/dL (112-347); VLDL Cholestrol Calculation 25 mg/dL (0-30)
[2021-09-10 12:39] VITALS: BP 162/99
[2021-09-10 13:39] LABS: Thyroid Stimulating Hormone 2.71 uIU/mL (0.27-4.20)
== END 2021-09-10 11:25 | disposition left against medical advice (07) ==
LOC: ER 12:13 → CSU 13:51
PROVIDERS: Admitting Provider Internal Medicine; Emergency Provider Emergency Medicine; PCP Nurse Practitioner Family; Visit Provider Student in an Organized Health Care Education/Training Program
DX: R00.2 Palpitations (principal); R42 Dizziness and giddiness; I25.10 Atherosclerotic heart disease of native coronary artery without angina pectoris; R00.1 Bradycardia, unspecified; D69.6 Thrombocytopenia, unspecified; R09.89 Other specified symptoms and signs involving the circulatory and respiratory systems; F17.210 Nicotine dependence, cigarettes, uncomplicated; M79.89 Other specified soft tissue disorders; Z85.51 Personal history of malignant neoplasm of bladder; J44.9 Chronic obstructive pulmonary disease, unspecified; M19.90 Unspecified osteoarthritis, unspecified site; I10 Essential (primary) hypertension; Z82.49 Family history of ischemic heart disease and other diseases of the circulatory system; Z83.3 Family history of diabetes mellitus
CPT/HCPCS: 36415; 71045; 80048; 80053; 80061; 83036; 83540; 83550; 83735; 83880; 84443; 84484; 85025; 93005; 93306; 93971; 96372; 99285; G0378; J1650

== ENCOUNTER 2023-07-06 11:35 | Emergency (ER) | payer MEDICAID, SELFPAY ==
[2023-07-06 11:37] VITALS: BP 168/119; PULSE 66; RESP 16; TEMP 36.5; O2SAT 95; BMI 24.0
--- NOTE | 2023-07-06 11:37 | XRR_ITS ---
PROCEDURE INFORMATION: Exam: XR Chest Exam date and time: 07/06/2023 11:49 AM Age: 72 years old Clinical indication: Cough and dyspnea; Additional info: Dyspnea/cough TECHNIQUE: Imaging protocol: Radiologic exam of the chest. Views: 1 view. COMPARISON: CR (CHEST, ) 09/09/2021 1:21 PM FINDINGS: Lungs: Unremarkable. No consolidation. Pleural spaces: Unremarkable. No pleural effusion. No pneumothorax. Heart/Mediastinum: Unremarkable. No cardiomegaly. Bones/joints: Unremarkable for age. XR/XR chest 1V portable [id number] IMPRESSION: Negative chest exam.
--- NOTE | 2023-07-06 11:38 | ECG_ITS ---
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 Measurements Intervals [place] Rate: 68 P: 80 [place]: 196 QRS: -26 QRSD: 100 T: 61 QT: 418 QTc: 446 Interpretive Statements SINUS RHYTHM WITH SINUS ARRHYTHMIA BORDERLINE LEFT AXIS DEVIATION [QRS AXIS < -20] Compared to ECG 09/09/2021 17:50:22 No significant changes Electronically Signed On 07-07-2023 10:29:44 CDT by Teresa Galeas M.D. [email or web address]
--- NOTE | 2023-07-06 11:45 | ED_ITS ---
HPI - Chest Pain General: Chief Complaint: Chest Pain Stated Complaint: CHEST PAIN Time Seen by Provider: 07/06/23 11:36 Source: patient Mode of arrival: ambulatory History of Present Illness: 72-year-old male presents emergency room complaining of intermittent chest pain that is very vague in his description he states when he lays down at night he shakes in his bed shakes. He has a vague chest discomfort has been going on for nearly 15 years does not particularly of shortness of breath with it no orthopnea no PND he has not noticed anything else that makes it better or worse. He said several years ago he still he had a heart attack. He is not having any chest pain at this time. MD complaint: chest pain Timing of current episode: episodic Onset: during rest Associated symptoms: Deny abdominal pain, dyspnea or fever(s) Review of Systems Const: Denies: fever(s) or chills Card: Denies: chest pain Resp: Denies: dyspnea GI: Denies: abdominal pain : Denies: dysuria, urinary frequency or urinary urgency Musc: Denies: neck pain or back pain Skin/Breast: Denies: rash PFSH ED PFSH: Medical History Acute bilateral low back pain Acute meniscal tear, lateral Bladder cancer Bladder trabeculation Chronic lumbar radiculopathy COPD (chronic obstructive pulmonary disease) DDD (degenerative disc disease), lumbar Degenerative arthritis of lumbar spine Encounter for long-term opiate analgesic use Hypertension Intervertebral disc disorders with myelopathy, lumbar region Neural foraminal stenosis of lumbar spine Surgical History History of neoplasm of bladder Family History Mother Diabetes Father CAD (coronary artery disease) COPD (chronic obstructive pulmonary disease) Social History Smoking and tobacco/nicotine status: current every day tobacco/nicotine user cigarettes Second hand smoke exposure: No Alcohol intake: never Substance/Drug Use: never Lives independently: Yes Household members: none Marital status: Single Marital status details: Has a significant other Current gender identity: Male Physical Exam Const: COMMON NORMALS: no acute distress GENERAL APPEARANCE: cooperative and comfortable ORIENTATION/CONSCIOUSNESS: Yes awake, Yes oriented to person, Yes oriented to place and Yes oriented to time HENMT: COMMON NORMALS: normocephalic, atraumatic and hearing grossly normal bilaterally HEAD & SCALP: normocephalic and atraumatic Resp: COMMON NORMALS: normal respiratory effort, No retractions, No use of accessory muscles and clear to auscultation bilaterally AUSCULTATION: clear to auscultation bilaterally Cardio: COMMON NORMALS: regular rate, regular rhythm and No murmurs present (Cardio) RATE: regular rate RHYTHM: regular rhythm GI: COMMON NORMALS: Soft to palpation and No hepatosplenomegaly present AUSCULTATION: Yes normoactive bowel sounds PALPATION: Yes Soft to palpation, No Tenderness to palpation present (GI), No Guarding due to palpation present (GI) and Yes No hepatosplenomegaly present Extremity: COMMON NORMALS: normal to inspection, capillary refill normal, no clubbing, cyanosis or edema, no calf tenderness and no pedal edema Neuro: SENSORIUM/ORIENTATION: Yes oriented to person, Yes oriented to place and Yes oriented to time OTHER: Cranial nerves II to XII grossly intact no focal neurologic deficits noted no signs of lateralizing symptoms suggestive of stroke at this time. Skin: COMMON NORMALS: no rashes or lesions noted GENERAL SKIN EXAM: no rashes or lesions noted Course Vital Signs: Vital signs: Vital Signs Temperature 98 F 07/06/23 14:13 Pulse Rate 60 07/06/23 14:13 Respiratory Rate 18 07/06/23 14:13 Blood Pressure 137/100 07/06/23 14:13 Pulse Oximetry 98 07/06/23 14:13 Oxygen Delivery Me thod Room Air 07/06/23 13:15 MDM - Chest Pain Medical Decision Making EKGs and cardiac enzymes are negative. We will discharge patient home set up for outpatient stress testing encouraged him to follow-up with his primary care doctor or establish a new primary care doctor to further evaluate extent of recurrence change symptoms recheck Lab Data 07/06/23 10:45 07/06/23 10:45 Radiology Impressions Chest X-Ray 07/06/23 11:37 IMPRESSION: Negative chest exam. Laboratory Results WBC 7.42 10^3/uL (3.29-11.43) 07/06/23 10:45 RBC 5.58 10^6/uL (3.85-5.65) 07/06/23 10:45 Hgb 18.00 g/dL (11.27-16.99) H 07/06/23 10:45 Hct 52.0 % (37-53) 07/06/23 10:45 MCV 93.2 fl (82-101) 07/06/23 10:45 MCH 32.3 pg (27-33) 07/06/23 10:45 MCHC 34.6 g/dL (30-55) 07/06/23 10:45 RDW 13.3 % (12.1-15.1) 07/06/23 10:45 Plt Count 147 10^3/cmm (157-399) L 07/06/23 10:45 MPV 10.7 fL (7.4-10.4) H 07/06/23 10:45 Neut % (Auto) 52.4 % 07/06/23 10:45 Lymph % (Auto) 33.0 % 07/06/23 10:45 [place] % (Auto) 9.6 % 07/06/23 10:45 Eos % (Auto) 3.8 % 07/06/23 10:45 Baso % (Auto) 0.9 % 07/06/23 10:45 Neut # (Auto) 3.89 10^3/uL (1.8-7.7) 07/06/23 10:45 Lymph # (Auto) 2.5 10^3/uL (0.8-4.8) 07/06/23 10:45 [place] # (Auto) 0.7 10^3/uL (0.2-0.9) 07/06/23 10:45 Eos # (Auto) 0.3 10^3/uL (0.0-0.8) 07/06/23 10:45 Baso # (Auto) 0.1 10^3/uL (0.0-0.1) 07/06/23 10:45 Nucleated RBC % (auto) 0 % 07/06/23 10:45 Nucleated RBCs # 0.0 /100WBC 07/06/23 10:45 Sodium 139 mmol/L (136-145) 07/06/23 10:45 Potassium 3.6 mmol/L (3.5-5.1) 07/06/23 10:45 Chloride 101 mmol/L (98-107) 07/06/23 10:45 Carbon Dioxide 29 mmol/L (22-29) 07/06/23 10:45 Anion Gap 12.6 (5-19) 07/06/23 10:45 BUN 12 mg/dL (8-23) 07/06/23 10:45 Creatinine 1.0 mg/dL (0.7-1.2) 07/06/23 10:45 GFR Calculation Not Reportable 07/06/23 10:45 Glucose 89 mg/dL (65-115) 07/06/23 10:45 Calculated Osmolality 287 mOsm/kg (285-295) 07/06/23 10:45 Lactic Acid 1.5 mmol/L (0.5-2.2) 07/06/23 12:11 Calcium 9.9 mg/dL (8.5-10.5) 07/06/23 10:45 Total Bilirubin 0.5 mg/dL (0.15-1.2) 07/06/23 10:45 AST 17 U/L (0-40) 07/06/23 10:45 ALT 14 U/L (0-41) 07/06/23 10:45 Alkaline Phosphatase 80 U/L (40-130) 07/06/23 10:45 Troponin T Baseline 16 ng/L (0-15) H 07/06/23 10:45 Troponin T 120 Minute 14.17 ng/L (0-15) 07/06/23 12:31 Delta Troponin T -1.83 ABS# (0-10) L 07/06/23 12:31 Total Protein 7.1 g/dL (6.6-8.7) 07/06/23 10:45 Albumin 4.5 g/dL (3.5-5.2) 07/06/23 10:45 Globulin 2.6 g/dL (1.3-4.6) 07/06/23 10:45 Urine Color Straw (Yellow) 07/06/23 12:04 Urine Appearance Clear (CLEAR) 07/06/23 12:04 Urine pH 8 (5-7) H 07/06/23 12:04 Ur Specific [place] 1.005 (1.005-1.030) 07/06/23 12:04 Urine Protein Neg (Negative) 07/06/23 12:04 Urine Glucose (UA) Norm (Normal) 07/06/23 12:04 Urine Ketones Negative (Negative) 07/06/23 12:04 Urine Blood Neg (Negative) 07/06/23 12:04 Urine Nitrate Negative (Negative) 07/06/23 12:04 Urine Bilirubin Neg (Negative) 07/06/23 12:04 Prot Sulfosalicylic Acd Negative (Negative) 07/06/23 12:04 Urine Urobilinogen Neg mg/dL (Negative) 07/06/23 12:04 Ur Leukocyte Esterase Negative (Negative) 07/06/23 12:04 All radiology interpretation(s) finalized by discharge Discharge Plan Discharge Patient Disposition: Home Clinical Impression: Atypical chest pain Condition: Stable Prescriptions: No Action albuterol sulfate 2.5 mg /3 mL (0.083 %) solution for nebulization 2.5 mg INHALATION Q6H PRN (Reason: Shortness Of Breath) amlodipine 10 mg tablet 10 mg PO DAILY@0800 hydroxyzine HCl 25 mg tablet 25 mg PO TID PRN (Reason: Anxiety) polyethylene glycol 3350 17 gram/dose powder See Rx Instructions .ROUTE .COMPLEX Rx Instructions: MIX 1 CAPFUL (17 GM) IN 8 OUNCES LIQUID AND DRINK ENTIRE LIQUID DAILY NEEDED FOR CONSTIPATION fluticasone propionate 50 mcg/actuation spray,suspension 2 spray INTRANASAL DAILY lactulose 10 gram/15 mL solution 30 ml PO DAILY PRN (Reason: Constipation) Symbicort 160-4.5 mcg/actuation HFA aerosol inhaler 2 inh INHALATION BID Discharge Orders: Discharge ED (Routine); Ordered 07/06/23 Ordered By: Alejandro Pruitt Referrals: Ridge Klein [Primary Care Provider] - Discharge Diet: Usual diet Discharge Activity: Increase activity as tolerated Patient Instructions: Opioid Safety, Pain Management Activity Restrictions/Additional Instructions: Follow-up with your primary care doctor. compensation programs manager will make arrangements to help you establish with a primary care physician and to set up an outpatient Lexiscan sestamibi stress test Coding Level of Care Code ED Pool Lifeguard for Lee Ann Khan
[2023-07-06] MEDS: sodium chloride 0.9% 1,000 ML 999 ML IV (11:47)
[2023-07-06 11:59] LABS: Basophils # 0.1 10^3/uL (0.0-0.1); Basophils % 0.9 %; Eosinophils # 0.3 10^3/uL (0.0-0.8); Eosinophils % 3.8 %; Lymphocytes # 2.5 10^3/uL (0.8-4.8); Mean Corpuscular HGB Conc 34.6 g/dL (30-55); Mean Corpuscular Hemoglobin 32.3 pg (27-33); Mean Corpuscular Volume 93.2 fl (82-101); Mean Platelet Volume 10.7 fL (7.4-10.4); Monocytes # 0.7 10^3/uL (0.2-0.9); Monocytes % 9.6 %; Neutrophils # 3.89 10^3/uL (1.8-7.7); Neutrophils % 52.4 %; Nucleated Red Blood Cells % 0 %; Platelet Count 147 10^3/cmm (157-399); Red Blood Count 5.58 10^6/uL (3.85-5.65); Red Cell Distribution Width 13.3 % (12.1-15.1); White Blood Count 7.42 10^3/uL (3.29-11.43)
[2023-07-06 12:16] LABS: Add Urine Microscopic? NO; Charge for UA Resulting for Rev
[2023-07-06 12:25] LABS: Alanine Aminotransferase 14 U/L (0-41); Albumin Level 4.5 g/dL (3.5-5.2); Alkaline Phosphatase 80 U/L (40-130); Anion Gap 12.6 (5-19); Aspartate Amino Transferase 17 U/L (0-40); Blood Urea Nitrogen 12 mg/dL (8-23); Calcium 9.9 mg/dL (8.5-10.5); Carbon Dioxide 29 mmol/L (22-29); Chloride 101 mmol/L (98-107); Globulin 2.6 g/dL (1.3-4.6); Glucose 89 mg/dL (65-115); Osmolality Calculated 287 mOsm/kg (285-295); Potassium 3.6 mmol/L (3.5-5.1); Sodium 139 mmol/L (136-145); Total Bilirubin 0.5 mg/dL (0.15-1.2); Total Protein 7.1 g/dL (6.6-8.7); Troponin(5th) Baseline 16 ng/L (0-15)
[2023-07-06 12:29] LABS: Urine Color Straw (Yellow)
[2023-07-06 12:30] LABS: Bilirubin Urine Neg (Negative); Blood Urine Neg (Negative); Glucose Urine UA Norm (Normal); Ketones Urine Negative (Negative); Leukocyte Esterase Urine Negative (Negative); Nitrate Urine Negative (Negative); Protein Urine Neg (Negative); Specific Gravity, Urine 1.005 (1.005-1.030); Sulfosalicylic Acid Urine Negative (Negative); Urine Appearance Clear (CLEAR); Urobilinogen Urine Neg (Negative); pH Urine 8 (5-7)
[2023-07-06 12:39] LABS: Lactic Sepsis W/Reflex 1.5 mmol/L (0.5-2.2)
[2023-07-06 13:01] LABS: Troponin 5 2HR 14.17 ng/L (0-15); Troponin 5 2HR Delta -1.83 ABS# (0-10)
[2023-07-06 13:15] VITALS: BP 137/110; PULSE 60; RESP 18; TEMP 36.6; O2SAT 98
--- NOTE | 2023-07-06 13:42 | ECG_ITS ---
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 Measurements Intervals [place] Rate: 57 P: 83 [place]: 221 QRS: -14 QRSD: 107 T: 29 QT: 423 QTc: 413 Interpretive Statements SINUS BRADYCARDIA WITH FIRST DEGREE AV BLOCK Compared to ECG 07/06/2023 11:35:34 First degree AV block now present Sinus rhythm no longer present Sinus arrhythmia no longer present Electronically Signed On 07-07-2023 10:49:38 CDT by Teresa Galeas M.D. [id number]
[2023-07-06 14:13] VITALS: BP 137/100; PULSE 60; RESP 18; TEMP 36.6; O2SAT 98
--- NOTE | 2023-07-09 10:08 | PC.SOCIAL ---
Stress Test Orders for stress test faxed to centralized scheduling at this time.
== END 2023-07-06 14:14 | disposition home or self-care (01) ==
PROVIDERS: Emergency Provider Family Medicine; PCP Nurse Practitioner Family
DX: R07.89 Other chest pain (principal); Z85.51 Personal history of malignant neoplasm of bladder; J44.9 Chronic obstructive pulmonary disease, unspecified; I10 Essential (primary) hypertension; F17.210 Nicotine dependence, cigarettes, uncomplicated
CPT/HCPCS: 36415; 71045; 80053; 81003; 83605; 84484; 85025; 93005; 99285; J7030